=== PATIENT | female | born 1975 ===

== ENCOUNTER 2024-05-19 14:22 | Outpatient (CLI) | payer OTHER ==
[2024-05-19 15:28] LABS: INR 1.09; PROTHROMBIN TIME 11.8 SECONDS (9.0-11.5)
== END 2024-05-19 14:26 | disposition home or self-care (01) ==
LOC: LAB 14:22
PROVIDERS: ATTEND Internal Medicine Geriatric Medicine
DX: D68.9 Coagulation defect, unspecified (principal)

== ENCOUNTER 2024-05-22 05:07 | Day surgery (SDC) | payer OTHER ==
[2024-05-22] MEDS ORDERED: POVIDONE-IODINE 118 ML BOTT TOP ONE (06:56)
[2024-05-22] MEDS ORDERED: CHLORHEXIDINE GLUCONATE 120 ML BOTTLE TOP ONE (06:57)
[2024-05-22] MEDS ORDERED: KETOROLAC TROMETHAMINE 30 MG VIAL IV STA (08:38)
[2024-05-22] MEDS ORDERED: KETOROLAC TROMETHAMINE 30 MG VIAL ONE (11:15)
== END 2024-05-22 13:55 | disposition home or self-care (01) ==
LOC: CIR.AMB 05:07
PROVIDERS: ATTEND Obstetrics & Gynecology
DX: D25.0 Submucous leiomyoma of uterus (principal); N95.0 Postmenopausal bleeding; N84.0 Polyp of corpus uteri; J45.909 Unspecified asthma, uncomplicated; F41.9 Anxiety disorder, unspecified

== ENCOUNTER 2024-08-14 05:15 | Day surgery (SDC) | payer OTHER ==
[~2024-08-14 05:15] MED LIST: MEGESTROL ACETA40 MG PO
[2024-08-14] MEDS ORDERED: MORPHINE SULFATE 4 MG/ML VIAL IV PRN (09:30)
[2024-08-14] MEDS ORDERED: KETOROLAC TROMETHAMINE 30 MG VIAL IV ONE (09:30)
[2024-08-14] MEDS ORDERED: MORPHINE SULFATE 4 MG/ML VIAL IV ONE ×2 (10:05→11:20)
== END 2024-08-14 13:40 | disposition home or self-care (01) ==
LOC: CIR.AMB 05:15
PROVIDERS: ATTEND Obstetrics & Gynecology
DX: D25.0 Submucous leiomyoma of uterus (principal); N93.8 Other specified abnormal uterine and vaginal bleeding; N95.0 Postmenopausal bleeding; J45.909 Unspecified asthma, uncomplicated; K21.9 Gastro-esophageal reflux disease without esophagitis; H52.10 Myopia, unspecified eye; J32.9 Chronic sinusitis, unspecified